=== PATIENT | male | born 1985 | race Caucasian/White ===

== ENCOUNTER 2016-09-28 01:35 | Emergency (ER) | payer OTHER ==
[~2016-09-28] VITALS: Ht 177.8 cm; Wt 83.9 kg
[2016-09-28 01:35] VITALS: BP 129/70
== END 2016-09-28 02:15 | disposition home or self-care (01) ==
LOC: ER 01:43
DX: B02.9 Zoster without complications (principal)
CPT/HCPCS: A4606; Z7610